=== PATIENT | female | born 1940 | race Caucasian/White ===

== ENCOUNTER 2020-03-01 01:45 | Inpatient (IN) | payer MEDICARE, OTHER ==
[2020-03-01] MEDS ORDERED: ONDANSETRON HCL INJ/PF 4 MG/2 ML SDV IV ONE (01:58)
[2020-03-01] MEDS ORDERED: NORMAL SALINE 1000 ML 1,000 ML IV ONE (01:58)
[2020-03-01 03:43] LABS: ABSOLUTE BASOPHILS # (AUTO) 0.2 10^3/uL (0.0-0.2); ABSOLUTE EOSINOPHILS # (AUTO) 0.1 10^3/uL (0.0-0.6); ABSOLUTE MONOCYTES (AUTO) 0.9 10^3/uL (0.1-1.4); ABSOLUTE NEUT (AUTO) 9.2 10^3/uL (1.7-8.2); BASOPHILS % (AUTO) 1.3 % (0-2); HEMATOCRIT 37.3 % (36.0-47.0); HEMOGLOBIN 12.2 g/dL (12.0-15.5); LYMPHOCYTES % (AUTO) 16.1 % (13-45); MEAN CORPUSCULAR HEMOGLOBIN 24.3 pg (27.0-33.4); MEAN CORPUSCULAR HGB CONC 32.8 g/dL (32.0-36.0); MEAN CORPUSCULAR VOLUME 74 fl (80-97); MONOCYTES % (AUTO) 7.6 % (3-13); PLATELET COUNT 316 10^3/uL (150-450); RED BLOOD COUNT 5.03 10^6/uL (3.72-5.28); RED CELL DISTRIBUTION WIDTH 19.5 % (11.5-14.0); TOTAL CELLS COUNTED % (AUTO) 100 %; WHITE BLOOD COUNT 12.4 10^3/uL (4.0-10.5)
[2020-03-01 03:49] LABS: ALBUMIN 3.1 g/dL (3.5-5.0); ALKALINE PHOSPHATASE 48 U/L (38-126); ASPARTATE AMINO TRANSFERASE 22 U/L (14-36); BILIRUBIN,TOTAL 0.7 mg/dL (0.2-1.3); BLOOD UREA NITROGEN 11 mg/dL (7-20); CARBON DIOXIDE 24 mmol/L (22-30); GLUCOSE 133 mg/dL (75-110); POTASSIUM 4.5 mmol/L (3.6-5.0); TOTAL PROTEIN 5.8 g/dL (6.3-8.2)
[2020-03-01 03:55] LABS: CHLORIDE 107 mmol/L (98-107)
[2020-03-01 03:57] LABS: ANION GAP 3 (5-19)
[2020-03-01] MEDS ORDERED: MORPHINE SULFATE 10 MG/ML INJ IV ONE ×2 (04:56→06:18)
--- NOTE | 2020-03-01 05:00 | ER Document Report ---
ED GI/ <DARSHANA GATES - Last Filed: 03/01/20 07:47> <JASBIR LYONS - Last Filed: 03/01/20 08:51> - General Chief Complaint: Nausea/Vomiting Stated Complaint: VOMITING Time Seen by Provider: 03/01/20 04:41 Notes: Patient is a 79-year-old female that comes to the emergency department for chief complaint of vomiting, abdominal swelling, abdominal pain. Patient has a history of Crohn's, has had an appendectomy, has had multiple small bowel obstructions in the past. She did have a normal-looking bowel movement earlier, she has vomited several times but this was nonbloody. She denies chest pain, fever, flank pain. Past medical history includes hypertension. She is down here visiting from [place]. She takes budesonide for Crohn's, lisinopril for hypertension, and Lasix for intermittent lower extremity swelling. (DARSHANA GATES) - Related Data Allergies/Adverse Reactions: Penicillins Allergy (Verified 03/01/20 06:22) Past Medical History - General Information source: Patient - Social History Smoking Status: Never Smoker Chew tobacco use (# tins/day): No Frequency of alcohol use: None Drug Abuse: None Lives with: Family Family History: Reviewed & Not Pertinent Patient has homicidal ideation: No - Past Medical History Cardiac Medical History: Reports: Hx Hypertension GI Medical History: Reports: Hx Crohn's Disease, Other - Small bowel obstructions Past Surgical History: Reports: Hx Appendectomy <DARSHANA GATES - Last Filed: 03/01/20 07:47> Review of Systems - Review of Systems Constitutional: No symptoms reported EENT: No symptoms reported Cardiovascular: No symptoms reported Respiratory: No symptoms reported Gastrointestinal: See HPI Genitourinary: No symptoms reported Female Genitourinary: No symptoms reported Musculoskeletal: No symptoms reported Skin: No symptoms reported Hematologic/Lymphatic: No symptoms reported Neurological/Psychological: No symptoms reported <DARSHANA GATES - Last Filed: 03/01/20 07:47> Physical Exam <DARSHANA GATES - Last Filed: 03/01/20 07:47> - Vital signs Vitals: Temp Pulse Resp BP Pulse Ox 98.4 F 80 16 133/61 H 93 03/01/20 01:55 03/01/20 01:55 03/01/20 01:55 03/01/20 01:55 03/01/20 01:55 - Notes Notes: GENERAL: Patient mildly uncomfortable and slightly restless in appearance but she is not in severe distress HEAD: Normocephalic, atraumatic. EYES: Pupils equal, round, and reactive to light. Extraocular movements intact. ENT: Oral mucosa dry, tongue midline. Oropharynx unremarkable. Airway patent. NECK: Full range of motion. Supple. Trachea midline. No lymphadenopathy. LUNGS: Clear to auscultation bilaterally, no wheezes, rales, or rhonchi. No respiratory distress. Non-tender chest wall. HEART: Regular rate and rhythm. No murmur ABDOMEN: Abdomen is somewhat distended and firm but is not rigid, there is generalized tenderness but no severe tenderness or guarding. Bowel sounds are quiet. EXTREMITIES: Moves all 4 extremities spontaneously. No edema, normal radial and dorsalis pedis pulses bilaterally. No cyanosis. BACK: no cervical, thoracic, lumbar midline tenderness. No saddle anesthesia, normal distal neurovascular exam. Moves all extremities in full range of motion. NEUROLOGICAL: Alert and oriented x3. Normal speech. Cranial nerves II through XII grossly intact. Strength 5/5 in all extremities. SKIN: Warm, dry, normal turgor. No rashes or lesions noted. (DARSHANA GATES) Course - Laboratory Result Diagrams: 03/01/20 03:20 03/01/20 03:20 <DARSHANA GATES - Last Filed: 03/01/20 07:47> - Laboratory Result Diagrams: 03/01/20 03:20 03/01/20 03:20 <JASBIR LYONS - Last Filed: 03/01/20 08:51> - Re-evaluation Re-evalutation: Patient with abdominal distention and generalized tenderness along with vomiting when I entered the room. Highest clinical concern is for small bowel obstruction. Vital signs unremarkable. CBC shows mild leukocytosis and elevation of neutrophils. Chemistry unremarkable, lipase is not elevated, troponin is not elevated, EKG shows left bundle branch block. Discussed with patient, she is not familiar with this and she is unsure if this is new or not. She has no chest pain. Urinalysis nonspecific and cultured. Patient reevaluated. She is almost done with the contrast already, she is asking for repeat pain medication but states it did help the first time, she is very alert, she is not disoriented, she does not appear to be in distress, she states she feels significantly improved from prior. CT pending. Patient does tell me that she has had 13 total nasogastric tubes and none of them worked, she states that she eventually just improved with IV medications and IV fluids with her bowel obstructions. She has not had surgical intervention for her bowel obstructions. (DARSHANA GATES) 03/01/20 08:13 report received on patient 03/01/20 08:[address] Lieberman, surgery. We discussed patient CT showing partial small bowel obstruction. With history of Crohn's he believes that patient may need GI and we do not have one addiction therapist. He states we can call medicine to see if they wish to admit the patient but otherwise patient will need transfer. He states that he does not manage Crohn's disease. 03/01/20 08:48 Spoke with the patient at length. She states that after the resection she had for Crohn's she has never really had any other Crohn's issues but has remained with some of the bowel obstructive issues. States she normally gets admitted for IV fluids and rest and gets better on its own she has never had surgery for the bowel obstructive issues. Spoke with Dr. Blanco, hospitalist, spoke with Dr. Desai, hospitalist. Case discussed will admit (JASBIR LYONS) - Vital Signs Vital signs: Temp Pulse Resp BP Pulse Ox 98.4 F 80 18 133/61 H 98 03/01/20 01:55 03/01/20 01:55 03/01/20 07:00 03/01/20 01:55 03/01/20 07:00 - Laboratory Laboratory results interpreted by me: 03/01/20 03/01/20 03:20 03:20 WBC 12.4 H MCV 74 L MCH 24.3 L RDW 19.5 H Absolute Neuts (auto) 9.2 H Sodium 134.3 L Anion Gap 3 L Glucose 133 H Total Protein 5.8 L Albumin 3.1 L - EKG Interpretation by Me Additional EKG results interpreted by me: EKG shows sinus rhythm at a rate of 78, QTc 479. Left bundle branch block is present. No comparison EKG available. (DARSHANA GATES) Discharge <DARSHANA GATES - Last Filed: 03/01/20 07:47> - Discharge Admitting Provider: Lloyd (Hospitalist) Unit Admitted: Medical Floor <JASBIR LYONS - Last Filed: 03/01/20 08:51> - Discharge Clinical Impression: SBO (small bowel obstruction) Abdominal pain Qualifiers: Abdominal location: generalized Qualified Code(s): R10.84 - Generalized abdominal pain Vomiting Qualifiers: Vomiting type: unspecified Vomiting Intractability: non-intractable Nausea presence: with nausea Qualified Code(s): R11.2 - Nausea with vomiting, unspecified Condition: Stable Disposition: ADMITTED INPATIENT
[2020-03-01] MEDS ORDERED: METOCLOPRAMIDE HCL INJ/PF 10 MG/2 ML SDV IV ONE (05:06)
[2020-03-01 06:08] LABS: APPEARANCE,URINE TURBID; BILIRUBIN,URINE NEGATIVE (NEGATIVE); COLOR,URINE AMBER; GLUCOSE, URINE NEGATIVE (NEGATIVE); KETONES,URINE NEGATIVE (NEGATIVE); LEUKOCYTE ESTERASE,URINE NEGATIVE (NEGATIVE); NITRITE,URINE NEGATIVE (NEGATIVE); PROTEIN,URINE NEGATIVE (NEGATIVE); URINE SPECIFIC GRAVITY 1.027; UROBILINOGEN,URINE NEGATIVE mg/dL (<2.0)
--- NOTE | 2020-03-01 08:24 | RADIOLOGY REPORT (SQ) ---
EXAM DESCRIPTION: CT ABD/PELVIS WITH IV ORAL IMAGES COMPLETED DATE/TIME: 03/01/2020 8:05 am REASON FOR STUDY: abd pain/vomit/swelling; hx SBO and crohns COMPARISON: None. TECHNIQUE: CT scan of the abdomen and pelvis performed with intravenous and oral contrast using rayna carleen scanning technique with dynamic intravenous contrast injection. Images reviewed with lung, soft t issue, and bone windows. Reconstructed coronal and sagittal MPR images reviewed. Delayed images for e valuation of the urinary system also acquired. All images stored on PACS. All CT scanners at this facility use dose modulation, iterative reconstruction, and/or weight based d osing when appropriate to reduce radiation dose to as low as reasonably achievable (ALARA). [facility]: Dose Right [facility]: CareDose [facility]: Dose Right [facility]: Teradose 4D [facility]: [employer] CONTRAST TYPE AND DOSE: 100 Omnipaque 350- low osmolar. RENAL FUNCTION: GFR > 60. RADIATION DOSE: CT Rad equipment meets quality standard of care and radiation dose reduction techniq ues were employed. CTDIvol: 15.8 - 18.7 mGy. DLP: 1839 mGy-cm. . LIMITATIONS: None. FINDINGS: LOWER CHEST: No significant findings. No nodules or infiltrates. LIVER: Normal size. Simple cyst measures 2 cm. No dilated ducts. SPLEEN: Normal size. No focal lesions. PANCREAS: No masses. No significant calcifications. No adjacent inflammation or peripancreatic fluid collections. Pancreatic duct not dilated. GALLBLADDER: No identified stones by CT criteria. No inflammatory changes to suggest cholecystitis. ADRENAL GLANDS: No significant masses or asymmetry. RIGHT KIDNEY AND URETER: No solid masses. No significant calcifications. No hydronephrosis or hyd roureter. LEFT KIDNEY AND URETER: No solid masses. No significant calcifications. No hydronephrosis or hydr oureter. AORTA AND VESSELS: No aneurysm. No dissection. Renal arteries, SMA, celiac without stenosis. RETROPERITONEUM: No retroperitoneal adenopathy, hemorrhage or masses. BOWEL AND PERITONEAL CAVITY: Mild dilatation of small bowel loops and stomach. Colonic gas fecal michael ear all. Scattered diverticular. No distinct transition zone. APPENDIX: Surgically absent. PELVIS: No significant masses. Normal bladder. No free fluid. ABDOMINAL WALL: No masses. No hernias. BONES: No significant or acute findings. OTHER: No other significant finding. IMPRESSION: Mild partial small bowel obstruction without distinct transition zone. TECHNICAL DOCUMENTATION: JOB ID: [id number] Quality ID # [id number]: Final reports with documentation of one or more dose reduction techniques (e.g., Au tomated exposure control, adjustment of the mA and/or kV according to patient size, use of iterative reconstruction technique) 2010 [employer]- All Rights Reserved Reading location - IP/workstation name: [email or web address]
[2020-03-01] MEDS ORDERED: PROCHLORPERAZINE EDISYLATE INJ 10 MG/2 ML VIAL IV ONE (08:37)
[2020-03-01] MEDS ORDERED: IPRATROPIUM/ALBUTEROL 0.5-2.5 MG/3 ML AMPUL NEB PRN (11:07)
[2020-03-01] MEDS ORDERED: MORPHINE SULFATE 10 MG/ML INJ IV PRN (11:10)
[2020-03-01] MEDS ORDERED: METOPROLOL TARTRATE PF/INJ 5 MG/5 ML SDV IV PRN (11:14)
[2020-03-01] MEDS ORDERED: HYDRALAZINE HCL INJ/PF 20 MG/1 ML SDV IV PRN (11:14)
[2020-03-01] MEDS ORDERED: PROMETHAZINE HCL INJ 25 MG/1 ML VIAL IV PRN (11:14)
[2020-03-01] MEDS ORDERED: ONDANSETRON HCL INJ/PF 4 MG/2 ML SDV IV PRN (11:14)
[2020-03-01] MEDS ORDERED: PHARMACY COMMUNICATION ORDER MC NR (11:15)
[2020-03-01] MEDS: NORMAL SALINE 1000 ML 1,000 ML IV PRN (11:36)
--- NOTE | 2020-03-01 11:42 | EKG REPORT ---
SEVERITY:- ABNORMAL ECG - SINUS RHYTHM LEFT BUNDLE BRANCH BLOCK : Confirmed by: Xavier Nesbitt MD 01-Mar-2020 11:41:22
[2020-03-01] MEDS: HEPARIN SOD (PORCINE) 5,000 UNIT/ML 1 ML VIAL SUBCUT SCH ×2 (14:42→21:31)
--- NOTE | 2020-03-01 16:39 | RADIOLOGY REPORT (SQ) ---
EXAM DESCRIPTION: KUB/ABDOMEN (SINGLE VIEW) IMAGES COMPLETED DATE/TIME: 03/01/2020 1:03 pm REASON FOR STUDY: Check Placement of NG Tube COMPARISON: None. NUMBER OF VIEWS: One view. TECHNIQUE: Supine radiographic image of the abdomen acquired. LIMITATIONS: None. FINDINGS: BOWEL GAS PATTERN: Gas is seen within nondistended loops of colon. CALCIFICATIONS: No suspicious calcifications. SOFT TISSUES: Continued urinary excretion recent intravenous contrast administration. HARDWARE: None in the abdomen. BONES: No acute fracture. No worrisome bone lesions. OTHER: No other significant finding. IMPRESSION: No enteric tube is visualized on the image provided. Otherwise stable appearance of the abdomen demonstrating continued urinary excretion of intravenous contrast. TECHNICAL DOCUMENTATION: JOB ID: [id number] 2010 [employer]- All Rights Reserved Reading location - IP/workstation name: [email or web address]
--- NOTE | 2020-03-01 16:59 | PDOC H&P ---
History of Present Illness Admission Date/PCP: 03/01/20 11:24 History of Present Illness: FER KNAPP is a 79 year old female has medical history of hypertension, Crohn's disease who is currently on budesonide with past surgical history of appendectomy and multiple partial small bowel obstructions in the past which none of them required any surgical intervention, last episode August 2019, patient currently visiting from [place] presented to ED complaining of acute onset nausea, anorexia, bilious vomiting, diffuse abdominal pain worse in the epigastric region, constant, nonradiating, 9/10 intensity no alleviating or exacerbating factors identified. Has had no bowel movement since yesterday, passed small amount of flatus this morning, denies any fever, shortness of mitali ath, chest pain, headache, weight changes, orthopnea, paroxysmal nocturnal dyspnea, or urinary symptoms. In the ED a CT abdomen showed partial small bowel obstruction, Dr. Lieberman from surgery was consulted and he recommended for patient to be admitted under hospitalist for observation as she did not need any acute surgical intervention. Past Medical History Cardiac Medical History: Reports: Hypertension GI Medical History: Reports: Crohn's Disease, Other - Small bowel obstructions Psychiatric Medical History: Denies: Depression Past Surgical History Past Surgical History: Reports: Appendectomy Social History Lives with: Family Smoking Status: Never Smoker Electronic Cigarette use?: No Frequency of Alcohol Use: None Hx Recreational Drug Use: No Hx Prescription Drug Abuse: No Family History Family History: Reviewed & Not Pertinent Parental Family History Reviewed: Yes Children Family History Reviewed: Yes Sibling(s) Family History Reviewed.: Yes Medication/Allergy Allergies/Adverse Reactions: Penicillins Allergy (Verified 03/01/20 06:22) Review of Systems Review of Systems: as per hpi Physical Exam Vital Signs: Temp Pulse Resp BP Pulse Ox 99.2 F 86 18 122/55 L 100 03/01/20 13:34 03/01/20 14:00 03/01/20 13:34 03/01/20 11:01 03/01/20 13:34 Intake & Output 02/29/20 03/01/20 03/02/20 06:59 06:59 06:59 Intake Total 1000 Balance 1000 Weight 97.069 kg 97.1 kg General appearance: PRESENT: no acute distress, obese, well-developed, well- nourished Head exam: PRESENT: atraumatic, normocephalic Respiratory exam: PRESENT: clear to auscultation gumaro. ABSENT: rales, rhonchi, wheezes GI/Abdominal exam: PRESENT: guarding, hyperactive bowel sounds, tenderness. ABSENT: distended, mass, organolmegaly, rebound Extremities exam: PRESENT: full ROM. ABSENT: calf tenderness, clubbing, pedal edema Neurological exam: PRESENT: alert, awake, oriented to person, oriented to place, oriented to time, oriented to situation, CN II-XII grossly intact. ABSENT: motor sensory deficit Results Laboratory Results: 03/01/20 03:20 03/01/20 03:20 03/01/20 03/01/20 03/01/20 03:20 03:20 03:20 WBC 12.4 H RBC 5.03 Hgb 12.2 Hct 37.3 MCV 74 L MCH 24.3 L MCHC 32.8 RDW 19.5 H Plt Count 316 Seg Neutrophils % 74.0 Sodium 134.3 L Potassium 4.5 Chloride 107 Carbon Dioxide 24 Anion Gap 3 L BUN 11 Creatinine 0.75 Est GFR ( Amer) > 60 Glucose 133 H Calcium 9.0 Total Bilirubin 0.7 AST 22 Alkaline Phosphatase 48 Total Protein 5.8 L Albumin 3.1 L Lipase 173.8 Urine Color Urine Appearance Urine pH Ur Specific Gregory Urine Protein Urine Glucose (UA) Urine Ketones Urine Blood Urine Nitrite Ur Leukocyte Esterase Urine WBC (Auto) Urine RBC (Auto) 03/01/20 05:42 WBC RBC Hgb Hct MCV MCH MCHC RDW Plt Count Seg Neutrophils % Sodium Potassium Chloride Carbon Dioxide Anion Gap BUN Creatinine Est GFR ( Amer) Glucose Calcium Total Bilirubin AST Alkaline Phosphatase Total Protein Albumin Lipase Urine Color PETAR Urine Appearance TURBID Urine pH 5.0 Ur Specific Gregory 1.027 Urine Protein NEGATIVE Urine Glucose (UA) NEGATIVE Urine Ketones NEGATIVE Urine Blood NEGATIVE Urine Nitrite NEGATIVE Ur Leukocyte Esterase NEGATIVE Urine WBC (Auto) 13 Urine RBC (Auto) 2 03/01/20 03:20 Troponin I < 0.012 Impressions: Abdomen/Pelvis CT 03/01/20 00:00 IMPRESSION: Mild partial small bowel obstruction without distinct transition zone. KUB X-Ray 03/01/20 11:11 IMPRESSION: No enteric tube is visualized on the image provided. Otherwise stable appearance of the abdomen demonstrating continued urinary excretion of intravenous contrast. Assessment and Plan - Diagnosis (1) Partial small bowel obstruction Is this a current diagnosis for this admission?: Yes Plan: Story of recurrent small bowel partial obstruction most likely due to underlying Crohn's disease. As per patient she had abdominal surgery for appendectomy as a child but for her recurrent small bowel obstruction she never had any surgical intervention as her obstruction usually resolves spontaneously with conservative management. CT abdomen is positive for mild partial small bowel obstruction without distinct transitional zone. Patient refusing to have NG tube placement stating that it never worked for her. Supportive measures, opioid and non-opioid analgesics, daily KUB, monitor vitals and electrolytes. If no improvement will reconsult surgery for reevaluation. (2) Hx of Crohn's disease Is this a current diagnosis for this admission?: Yes Plan: History of Crohn's disease on home budesonide. Denies any recent melena or hematochezia. Resume home meds. Outpatient PCP and gastroenterology follow-up. (3) Hypertension Is this a current diagnosis for this admission?: Yes Plan: Monitor vitals. Resume home meds. Adjust meds as needed. (4) Nausea & vomiting Is this a current diagnosis for this admission?: Yes Plan: Due to #1. Supportive measures. Monitor vitals and electrolytes replace as needed.
[2020-03-01] MEDS: FAMOTIDINE INJ/PF 20 MG/2 ML SDV IV SCH (21:31)
[2020-03-02] MEDS: HEPARIN SOD (PORCINE) 5,000 UNIT/ML 1 ML VIAL SUBCUT SCH (05:07)
[2020-03-02] MEDS: NORMAL SALINE 1000 ML 1,000 ML IV PRN (05:07)
[2020-03-02 05:43] LABS: ABSOLUTE BASOPHILS # (AUTO) 0.1 10^3/uL (0.0-0.2); ABSOLUTE EOSINOPHILS # (AUTO) 0.2 10^3/uL (0.0-0.6); ABSOLUTE LYMPHOCYTES (AUTO) 2.3 10^3/uL (0.5-4.7); ABSOLUTE MONOCYTES (AUTO) 0.7 10^3/uL (0.1-1.4); ABSOLUTE NEUT (AUTO) 3.9 10^3/uL (1.7-8.2); BASOPHILS % (AUTO) 0.9 % (0-2); EOSINOPHILS % (AUTO) 2.1 % (0-6); HEMATOCRIT 30.1 % (36.0-47.0); LYMPHOCYTES % (AUTO) 32.5 % (13-45); MEAN CORPUSCULAR HEMOGLOBIN 24.3 pg (27.0-33.4); MEAN CORPUSCULAR VOLUME 74 fl (80-97); MONOCYTES % (AUTO) 10.2 % (3-13); PLATELET COUNT 226 10^3/uL (150-450); RED BLOOD COUNT 4.09 10^6/uL (3.72-5.28); SEGMENTED NEUTROPHILS % (AUTO) 54.3 % (42-78); TOTAL CELLS COUNTED % (AUTO) 100 %; WHITE BLOOD COUNT 7.2 10^3/uL (4.0-10.5)
[2020-03-02 05:47] LABS: HEMOGLOBIN 9.9 g/dL (12.0-15.5)
[2020-03-02 06:01] LABS: ALBUMIN 2.2 g/dL (3.5-5.0); ALKALINE PHOSPHATASE 43 U/L (38-126); ASPARTATE AMINO TRANSFERASE 15 U/L (14-36); BILIRUBIN,TOTAL 0.6 mg/dL (0.2-1.3); BLOOD UREA NITROGEN 9 mg/dL (7-20); GLUCOSE 76 mg/dL (75-110); POTASSIUM 3.9 mmol/L (3.6-5.0); TOTAL PROTEIN 4.5 g/dL (6.3-8.2)
[2020-03-02 06:08] LABS: CARBON DIOXIDE 23 mmol/L (22-30); CHLORIDE 107 mmol/L (98-107)
[2020-03-02 06:10] LABS: ANION GAP 4 (5-19)
--- NOTE | 2020-03-02 08:24 | RADIOLOGY REPORT (SQ) ---
EXAM DESCRIPTION: KUB/ABDOMEN (SINGLE VIEW) IMAGES COMPLETED DATE/TIME: 03/02/2020 7:41 am REASON FOR STUDY: SBO COMPARISON: CT scan 03/01/2020 NUMBER OF VIEWS: One view. TECHNIQUE: Supine radiographic image of the abdomen acquired. LIMITATIONS: None. FINDINGS: BOWEL GAS PATTERN: Contrast mass seen to the distribution of the colon and rectum. No dil ated small bowel loops. CALCIFICATIONS: No suspicious calcifications. SOFT TISSUES: No gross mass or suggestion of organomegaly. HARDWARE: Surgical clips. BONES: No acute fracture. No worrisome bone lesions. OTHER: No other significant finding. IMPRESSION: Resolution of small bowel obstruction. TECHNICAL DOCUMENTATION: JOB ID: [id number] 2010 [employer]- All Rights Reserved Reading location - IP/workstation name: [email or web address]
[2020-03-02] MEDS: FAMOTIDINE INJ/PF 20 MG/2 ML SDV IV SCH (09:57)
[2020-03-02 10:54] VITALS: BP 118/79
--- NOTE | 2020-03-02 14:38 | PDOC DISCHARGE SUMMARY ---
Impression - Admit/DC Date/PCP Admission Date/Primary Care Provider: 03/02/20 11:03 Discharge Date: 03/02/20 - Discharge Diagnosis (1) Partial small bowel obstruction Is this a current diagnosis for this admission?: Yes (2) Hx of Crohn's disease Is this a current diagnosis for this admission?: Yes (3) Hypertension Is this a current diagnosis for this admission?: Yes (4) Nausea & vomiting Is this a current diagnosis for this admission?: Yes (5) UTI (urinary tract infection) Is this a current diagnosis for this admission?: Yes - Additional Information Discharge Diet: As Tolerated Discharge Activity: Activity As Tolerated Prescriptions: Nitrofurantoin Monohyd/M-Cryst [Macrobid 100 mg Capsule] 100 mg PO BID 5 Days #10 cap Ondansetron HCl [Zofran] 8 mg PO Q8 4 Days #12 tablet Home Medications: Nitrofurantoin Monohyd/M-Cryst [Macrobid 100 mg Capsule] 100 mg PO BID 5 Days #10 cap 03/02/20 Ondansetron HCl [Zofran] 8 mg PO Q8 4 Days #12 tablet 03/02/20 History of Present Illiness History of Present Illness: FER KNAPP is a 79 year old female has medical history of hypertension, Crohn's disease who is currently on budesonide with past surgical history of appendectomy and multiple partial small bowel obstructions in the past which none of them required any surgical intervention, last episode August 2019, patient currently visiting from [place] presented to ED complaining of acute onset nausea, anorexia, bilious vomiting, diffuse abdominal pain worse in the epigastric region, constant, nonradiating, 9/10 intensity no alleviating or exacerbating factors identified. Has had no bowel movement since yesterday, passed small amount of flatus this morning, denies any fever, shortness of breath, chest pain, headache, weight changes, orthopnea, paroxysmal nocturnal dyspnea, or urinary symptoms. In the ED a CT abdomen showed partial small bowel obstruction, Dr. Lieberman from surgery was consulted and he recommended for patient to be admitted under hospitalist for observation as she did not need any acute surgical intervention. Hospital Course Hospital Course: (1) Partial small bowel obstruction Resolved. Tolerated p.o. intake. Having normal bowel and bladder movements. Hstory of recurrent small bowel partial obstruction most likely due to underlying Crohn's disease. As per patient she had abdominal surgery for appendectomy as a child but for her recurrent small bowel obstruction she never had any surgical intervention as her obstruction usually resolves spontaneously with conservative management. CT abdomen is positive for mild partial small bowel obstruction without distinct transitional zone. Patient refusing to have NG tube placement stating that it never worked for her. Started on supportive measures, opioid and non-opioid analgesics, daily KUB, monitor vitals and electrolytes. (2) Hx of Crohn's disease History of Crohn's disease on home budesonide. Denied any recent melena or hematochezia. Advised to restart home meds upon discharge and follow-up with PCP and gastroenterology. (3) Hypertension Monitor vitals. Resume home meds. Adjust meds as needed. (4) Nausea & vomiting Resolved. Due to #1. Supportive measures. Monitor vitals and electrolytes replace as needed. (5) UTI Culture grew gram-negative rods, pending sensitivity, likely E. coli. Was discharged on Macrobid 100 mg twice daily for 5 days. We will follow-up urine culture. Likely due to Physical Exam Vital Signs: Temp Pulse Resp BP Pulse Ox 98.3 F 88 16 118/79 93 03/02/20 13:15 03/02/20 13:15 03/02/20 13:15 03/02/20 13:15 03/02/20 13:15 Intake & Output 03/01/20 03/02/20 03/03/20 06:59 06:59 06:59 Intake Total 1999 Balance 1999 Weight 97.069 kg 99.8 kg General appearance: PRESENT: no acute distress, obese, well-developed, well- nourished Neck exam: ABSENT: carotid bruit, JVD, lymphadenopathy, thyromegaly Respiratory exam: PRESENT: clear to auscultation gumaro. ABSENT: rales, rhonchi, wheezes Cardiovascular exam: PRESENT: RRR. ABSENT: diastolic murmur, rubs, systolic murmur GI/Abdominal exam: PRESENT: normal bowel sounds, soft. ABSENT: distended, guarding, mass, organolmegaly, rebound, tenderness Neurological exam: PRESENT: alert, awake, oriented to person, oriented to place, oriented to time, oriented to situation, CN II-XII grossly intact. ABSENT: motor sensory deficit Skin exam: PRESENT: dry, intact, warm. ABSENT: cyanosis, rash Results Laboratory Results: WBC 7.2 10^3/uL (4.0-10.5) 03/02/20 04:37 RBC 4.09 10^6/uL (3.72-5.28) 03/02/20 04:37 Hgb 9.9 g/dL (12.0-15.5) L D 03/02/20 04:37 Hct 30.1 % (36.0-47.0) L 03/02/20 04:37 MCV 74 fl (80-97) L 03/02/20 04:37 MCH 24.3 pg (27.0-33.4) L 03/02/20 04:37 MCHC 33.0 g/dL (32.0-36.0) 03/02/20 04:37 RDW 20.0 % (11.5-14.0) H 03/02/20 04:37 Plt Count 226 10^3/uL (150-450) 03/02/20 04:37 Lymph % (Auto) 32.5 % (13-45) 03/02/20 04:37 [place] % (Auto) 10.2 % (3-13) 03/02/20 04:37 Eos % (Auto) 2.1 % (0-6) 03/02/20 04:37 Baso % (Auto) 0.9 % (0-2) 03/02/20 04:37 Absolute Neuts (auto) 3.9 10^3/uL (1.7-8.2) 03/02/20 04:37 Absolute Lymphs (auto) 2.3 10^3/uL (0.5-4.7) 03/02/20 04:37 Absolute Monos (auto) 0.7 10^3/uL (0.1-1.4) 03/02/20 04:37 Absolute Eos (auto) 0.2 10^3/uL (0.0-0.6) 03/02/20 04:37 Absolute Basos (auto) 0.1 10^3/uL (0.0-0.2) 03/02/20 04:37 Seg Neutrophils % 54.3 % (42-78) 03/02/20 04:37 Sodium 134.1 mmol/L (137-145) L 03/02/20 04:37 Potassium 3.9 mmol/L (3.6-5.0) 03/02/20 04:37 Chloride 107 mmol/L (98-107) 03/02/20 04:37 Carbon Dioxide 23 mmol/L (22-30) 03/02/20 04:37 Anion Gap 4 (5-19) L 03/02/20 04:37 BUN 9 mg/dL (7-20) 03/02/20 04:37 Creatinine 0.81 mg/dL (0.52-1.25) 03/02/20 04:37 Est GFR ( Amer) > 60 (>60) 03/02/20 04:37 Est GFR (MDRD) Non-Af > 60 (>60) 03/02/20 04:37 Glucose 76 mg/dL (75-110) 03/02/20 04:37 Calcium 8.0 mg/dL (8.4-10.2) L 03/02/20 04:37 Magnesium 2.0 mg/dL (1.6-2.3) 03/02/20 04:37 Total Bilirubin 0.6 mg/dL (0.2-1.3) 03/02/20 04:37 Direct Bilirubin 0.0 mg/dL (0.0-0.4) 03/02/20 04:37 Neonat Total Bilirubin Not Reportable 03/02/20 04:37 Neonat Direct Bilirubin Not Reportable 03/02/20 04:37 Neonat Indirect Bili Not Reportable 03/02/20 04:37 AST 15 U/L (14-36) 03/02/20 04:37 ALT 12 U/L (<35) 03/02/20 04:37 Alkaline Phosphatase 43 U/L (38-126) 03/02/20 04:37 Troponin I < 0.012 ng/mL 03/01/20 03:20 Total Protein 4.5 g/dL (6.3-8.2) L 03/02/20 04:37 Albumin 2.2 g/dL (3.5-5.0) L 03/02/20 04:37 Lipase 173.8 U/L (23-300) 03/01/20 03:20 Urine Color PETAR 03/01/20 05:42 Urine Appearance TURBID 03/01/20 05:42 Urine pH 5.0 (5.0-9.0) 03/01/20 05:42 Ur Specific [place] 1.027 03/01/20 05:42 Urine Protein NEGATIVE mg/dL (NEGATIVE) 03/01/20 05:42 Urine Glucose (UA) NEGATIVE mg/dL (NEGATIVE) 03/01/20 05:42 Urine Ketones NEGATIVE mg/dL (NEGATIVE) 03/01/20 05:42 Urine Blood NEGATIVE (NEGATIVE) 03/01/20 05:42 Urine Nitrite NEGATIVE (NEGATIVE) 03/01/20 05:42 Urine Bilirubin NEGATIVE (NEGATIVE) 03/01/20 05:42 Urine Urobilinogen NEGATIVE mg/dL (<2.0) 03/01/20 05:42 Ur Leukocyte Esterase NEGATIVE (NEGATIVE) 03/01/20 05:42 Urine WBC (Auto) 13 /HPF 03/01/20 05:42 Urine RBC (Auto) 2 /HPF 03/01/20 05:42 Urine Bacteria (Auto) 2+ /HPF 03/01/20 05:42 Squamous Epi Cells Auto 5 /HPF 03/01/20 05:42 Urine Mucus (Auto) MANY /LPF 03/01/20 05:42 Urine Ascorbic Acid NEGATIVE (NEGATIVE) 03/01/20 05:42 SARS-CoV-2 (PCR) NEGATIVE (NEGATIVE) 03/02/20 09:15 03/01/20 03:20 Troponin I < 0.012 Impressions: Abdomen/Pelvis CT 03/01/20 00:00 IMPRESSION: Mild partial small bowel obstruction without distinct transition zone. KUB X-Ray 03/01/20 11:11 IMPRESSION: No enteric tube is visualized on the image provided. Otherwise stable appearance of the abdomen demonstrating continued urinary excretion of intravenous contrast. KUB X-Ray 03/02/20 08:00 IMPRESSION: Resolution of small bowel obstruction. Stroke Is this a Stroke Patient?: No Acute Heart Failure - Is this a Heart Failure Patient?: No
== END 2020-03-02 13:45 | disposition home or self-care (01) | DRG 386 ==
LOC: EDBD → ER 01:45 → EH 11:24 → 3N 13:17 → OBSVTOIN 03-02 11:03
PROVIDERS: ADMIT Internal Medicine; ATTEND Internal Medicine
DX: K50.912 Crohn's disease, unspecified, with intestinal obstruction (principal); N39.0 Urinary tract infection, site not specified; I10 Essential (primary) hypertension; B96.20 Unspecified Escherichia coli [E. coli] as the cause of diseases classified elsewhere; Z20.828 Contact with and (suspected) exposure to other viral communicable diseases; Z79.899 Other long term (current) drug therapy; Z88.0 Allergy status to penicillin; Z90.49 Acquired absence of other specified parts of digestive tract
CPT/HCPCS: 36415; 74018; 74177; 80053; 81001; 83690; 83735; 84484; 85025; 87086; 87088; 87186; 87635; 93005; 93010; 96361; 96374; 96375; 96376; 99285; C9803; G0378; J0780; J1644; J2270; J2405; J2765; J3490; J7030; S0028